=== PATIENT | female | born 1980 | race Caucasian/White ===

== ENCOUNTER → 2016-11-28 | Outpatient (CLI) | payer BC ==
[~2016-11-28] MED LIST: LISI10TA PO
[2016-11-28 14:04] LABS: URINE PROTIEN/CREAT RATIO 0.2 (0-0.2); URINE TOTAL PROTEIN 29.1 mg/dl (0-11.9)
== END | disposition home or self-care (01) ==
LOC: C.LAB1850 11:48
PROVIDERS: ATTEND Internal Medicine Nephrology
DX: I10 Essential (primary) hypertension (principal)

== ENCOUNTER → 2017-05-28 | Outpatient (CLI) | payer BC ==
[2017-05-28 18:07] LABS: URINE APPEARANCE CLEAR (CLEAR); URINE BILIRUBIN NEG (NEG); URINE COLOR YELLOW; URINE EPITHELIAL CELL AUTO >30 /lpf (0-5); URINE NITRITE NEG (NEG); URINE PH 5.5 (4.5-7.5); URINE SPECIFIC GRAVITY 1.013 (1.000-1.030); UROBILINOGEN NEG (NEG); ZZUR CULT IF INDIC CLEAN CATCH NO
[2017-05-28 18:14] LABS: URINE PROTIEN/CREAT RATIO 0.1 (0-0.2); URINE TOTAL PROTEIN 6.4 mg/dl (0-11.9)
[2017-05-28 18:17] LABS: MANUAL MICROSCOPIC REQUIRED? NO; REVIEW REQ? NO
[2017-05-28 18:20] LABS: BLOOD UREA NITROGEN 16 mg/dl (7-18); BUN/CREATININE RATIO 17.4 (10-20); CALCIUM 9.1 mg/dl (8.5-10.1); CARBON DIOXIDE 25 mmol/L (21-32); CHLORIDE 108 mmol/L (98-107); CREATININE 0.92 mg/dl (0.60-1.20); GLUCOSE 81 mg/dl (70-99); MAGNESIUM 2.1 mg/dl (1.8-2.4); POTASSIUM 4.3 mmol/L (3.5-5.1); SODIUM 139 mmol/L (136-145)
[2017-05-28 18:34] LABS: FERRITIN 25.7 ng/ml (8.0-388.0); PHOSPHORUS 2.8 mg/dl (2.5-4.9); TOTAL IRON BINDING CAPACITY 327 mcg/dl (250-450)
== END | disposition home or self-care (01) ==
LOC: C.LABPVFM 11:26
PROVIDERS: ATTEND Internal Medicine Nephrology
DX: I10 Essential (primary) hypertension (principal); R80.9 Proteinuria, unspecified; L65.9 Nonscarring hair loss, unspecified

== ENCOUNTER → 2018-01-07 | Outpatient (CLI) | payer BC ==
[2018-01-07 17:58] LABS: ALBUMIN 3.9 gm/dl (3.4-5.0); BLOOD UREA NITROGEN 17 mg/dl (7-18); CALCIUM 8.9 mg/dl (8.5-10.1); CARBON DIOXIDE 25 mmol/L (21-32); CREATININE 0.82 mg/dl (0.60-1.20); GLUCOSE 92 mg/dl (70-99); POTASSIUM 4.2 mmol/L (3.5-5.1); SODIUM 137 mmol/L (136-145)
[2018-01-07 17:59] LABS: PHOSPHORUS 2.8 mg/dl (2.5-4.9)
== END | disposition home or self-care (01) ==
LOC: C.LABPVFM 16:02
PROVIDERS: ATTEND Internal Medicine Nephrology
DX: I10 Essential (primary) hypertension (principal); R80.9 Proteinuria, unspecified

== ENCOUNTER 2018-04-10 18:20 | Emergency (ER) | payer BC ==
[~2018-04-10] VITALS: Ht 162.6 cm; Wt 61.6 kg
[2018-04-10 18:25] VITALS: Ht 162.6 cm; Wt 61.6 kg
--- NOTE | 2018-04-10 18:56 | EMERGENCY ROOM VISIT NOTE ---
ED Visit Note First contact with patient: 18:29 CHIEF COMPLAINT: Hand injury HISTORY OF PRESENT ILLNESS: This [id number] 37-year-old female patient presented to the emergency department, ambulatory, approximately 2 hours after they injured the right hand when she dropped a heavy, full laundry detergent container on the right hand. The patient rates the pain as sharp and 3/10. The patient denies any numbness or tingling. The patient does not have injuries to the wrist, but does have some mild tenderness and states she did drop the container on the wrist as well. The patient has not had a previous fracture to this hand. The patient attempted ice, but continues to notice pain and swelling. The patient does have a small abrasion of the dorsal aspect of the fourth digit, but she denies any significant bleeding or open wound. REVIEW OF SYSTEMS: A 6 system review of systems was completed with positives and pertinent negatives in the HPI. ALLERGIES: Sulfa MEDICATIONS: Lisinopril PMH: Hypertension SOCIAL HISTORY: The patient is locally with family. She denies drug, alcohol, tobacco use. PHYSICAL EXAM: Vital Signs: Reviewed Nurse's notes, vital signs stable. GENERAL : This is a 37-year-old white female, in no acute distress, but appears to be in pain, well-developed, well-nourished. MUSCULOSKELETAL: There is no deformity of the right hand. There is tenderness over the fourth and fifth metacarpals and MCP joints. There is tenderness of the medial wrist. There is no thenar or hypothenar eminence atrophy. Normal thumb opposition to all fingers. Senior Quality Control Inspector strength 5/5. There is a very superficial laceration of the dorsal aspect of the proximal fourth digit. Capillary refill less than 2 seconds. No tenderness of the fingers or wrist. Full range of motion of the wrist. No snuff box tenderness. Radial pulse 2+. NEURO: Alert and oriented to person, place, and time. Normal sensation to light and sharp touch. RADIOLOGY: R HAND MIN 3 VIEWS ROUTINE CLINICAL HISTORY: crush injury right hand, pain 4-5 MCP RIGHT HAND PAIN COMPARISON: None. DISCUSSION: No acute fractures or dislocations are visualized. IMPRESSION: No fractures or dislocations identified. Electronically signed by: Ismael Baldwin M.D. 04/10/2018 7:06 PM Dictated Date/Time: 04/10/2018 7:05 PM R WRIST W/NAVICULAR MIN 3 VIEWS CLINICAL HISTORY: Right wrist pain status post trauma COMPARISON: None. DISCUSSION: No fractures or dislocations are visualized. IMPRESSION: No fractures or dislocations identified. Electronically signed by: Ismael Baldwin M.D. 04/10/2018 7:06 PM Dictated Date/Time: 04/10/2018 7:06 PM EMERGENCY DEPARTMENT COURSE: I examined the patient. She was offered analgesics and declines. She was given an ice pack. An x-ray of the right wrist and hand was reviewed by myself and radiologist and shows no acute fractures or dislocations. I discussed the findings with the patient at bedside. I offered a splint or reuben wrap and the patient declines. Discharge instructions reviewed. The patient was discharged home in good condition. I attest that I have personally reviewed the patient's current medication list. Patient was found to have normal blood pressure on screening and does not require follow-up. Etiologies such as soft tissue injury, fracture, dislocation, neurovascular compromise, compartment syndrome, as well as others were entertained. DIAGNOSIS: right hand and wrist contusion The chart was completed utilizing [employer] Speech voice recognition software. Grammatical errors, random word insertions, pronoun errors, and incomplete sentences are an occasional consequence of this system due to software limitations, ambient noise, and hardware issues. Any formal questions or concerns about the content, text, or information contained within the body of this dictation should be directly addressed to the provider for clarification. Current/Historical Medications Scheduled Lisinopril (Prinivil), 10 MG PO DAILY Allergies Uncoded Allergies: SULFA (Allergy, Intermediate, Hives, 12/31/10) Vital Signs Date Time Temp Pulse Resp B/P (MAP) Pulse Ox O2 Delivery O2 Flow Rate FiO2 04/10/18 18:25 36.7 77 17 167/107 100 Room Air Departure Information Impression Primary Impression: Contusion of right hand Additional Impression: Contusion of right wrist Dispostion Home / Self-Care Condition GOOD Referrals Carey Rosario M.D. (PCP) Patient Instructions ED Contusion Hand, My [facility] Additional Instructions You were seen in the ED today for right hand pain. X-ray of the right wrist and hand were negative for acute fracture. Ibuprofen(Motrin, Advil) may be used for fever or pain. Use 600mg every six hours as needed. Take with food. Avoid using more than 2400mg in a 24 hour period. Do not use 2400mg per day for more than three consecutive days without physician direction. Prolonged inappropriate use can lead to stomach upset or ulcers. (AND/OR) Acetaminophen(Tylenol) may be used for fever or pain. Use 1000mg every six hours as needed. Avoid using more than 3000mg in a 24 hour period. Ice compresses for 20 minutes at a time four times daily for 2-3 days. Use an reuben wrap as needed for compression and comfort. Rest and elevate your injury. Return to the ER immediately for any numbness, tingling, severe pain, extreme swelling in the extremity or as needed. Follow-up with your primary care physician in 2 to 3 days for a recheck of your current condition. Problem Qualifiers Primary Impression: Contusion of right hand Encounter type: initial encounter Qualified Codes: S60.221A - Contusion of right hand, initial encounter Additional Impression: Contusion of right wrist Encounter type: initial encounter Qualified Codes: S60.211A - Contusion of right wrist, initial encounter
--- NOTE | 2018-04-10 19:07 | DIAGNOSTIC IMAGING REPORT ---
R HAND MIN 3 VIEWS ROUTINE CLINICAL HISTORY: crush injury right hand, pain 4-5 MCP RIGHT HAND PAIN COMPARISON: None. DISCUSSION: No acute fractures or dislocations are visualized. IMPRESSION: No fractures or dislocations identified. Electronically signed by: Ismael Baldwin M.D. 04/10/2018 7:06 PM Dictated Date/Time: 04/10/2018 7:05 PM
--- NOTE | 2018-04-10 19:08 | DIAGNOSTIC IMAGING REPORT ---
R WRIST W/NAVICULAR MIN 3 VIEWS CLINICAL HISTORY: Right wrist pain status post trauma COMPARISON: None. DISCUSSION: No fractures or dislocations are visualized. IMPRESSION: No fractures or dislocations identified. Electronically signed by: Ismael Baldwin M.D. 04/10/2018 7:06 PM Dictated Date/Time: 04/10/2018 7:06 PM
[2018-04-10 19:39] VITALS: BP 167/107; PULSE 77; TEMP 36.7; O2SAT 100
== END 2018-04-10 19:40 | disposition home or self-care (01) ==
LOC: C.EDB 18:22 → C.EDD 19:40
DX: S60.221A Contusion of right hand, initial encounter (principal); S60.211A Contusion of right wrist, initial encounter; W22.8XXA Striking against or struck by other objects, initial encounter; I10 Essential (primary) hypertension; Z79.899 Other long term (current) drug therapy; Z88.2 Allergy status to sulfonamides